=== PATIENT | female | born 2005 ===

== ENCOUNTER 2024-06-22 13:38 | Emergency (ER) | payer MEDICAID ==
[2024-06-22] MEDS: Sodium Chloride 0.9% 1,000 ML IV ONE (14:39)
[2024-06-22] MEDS: Ondansetron 4 MG/2 ML SDV IVPUSH ONE (14:40)
[2024-06-22 14:48] LABS: BASOPHILS ABSOLUTE AUTO 0.02 K/uL (0.00-0.20); BASOPHILS PERCENT AUTO 0.2 % (0.0-1.0); EOSINOPHILS ABSOLUTE AUTO 0.01 K/uL (0.00-0.45); EOSINOPHILS PERCENT AUTO 0.1 % (0.0-6.0); HEMATOCRIT 42.1 % (37.0-47.0); HEMOGLOBIN 14.4 g/dL (12.0-16.0); IMMATURE GRAN ABSOLUTE AUTO 0.03 K/uL (0.00-0.05); IMMATURE GRAN PERCENT AUTO 0.2 % (0.0-0.4); LYMPHOCYTES ABSOLUTE AUTO 0.95 K/uL (1.00-4.80); LYMPHOCYTES PERCENT AUTO 7.6 % (24.0-44.0); MEAN CORPUSCULAR HEMOGLOBIN 28.3 pg (28.0-32.0); MEAN CORPUSCULAR HGB CONC 34.2 g/dL (32.0-36.0); MEAN CORPUSCULAR VOLUME 82.9 fL (83.0-99.0); MEAN PLATELET VOLUME 11.2 fL (9.4-12.3); MONOCYTES ABSOLUTE AUTO 0.71 K/uL (0.00-0.80); MONOCYTES PERCENT AUTO 5.7 % (0.0-8.0); NEUTROPHILS PERCENT AUTO 86.2 % (41.0-71.0); PLATELET COUNT,PLT 212 K/uL (150-400); RED BLOOD CELL COUNT 5.08 M/uL (4.10-5.30); WHITE BLOOD CELL COUNT,WBC 12.52 K/uL (3.9-11.3)
[2024-06-22 14:49] LABS: BILIRUBIN,URINE NEGATIVE (NEGATIVE); COLOR,URINE YELLOW; GLUCOSE,URINE NEGATIVE (NEGATIVE); KETONES,URINE >=80 mg/dL (NEGATIVE); LEUKOCYTE ESTERASE,URINE NEGATIVE (NEGATIVE); NITRITE,URINE NEGATIVE (NEGATIVE); OCCULT BLOOD,URINE NEGATIVE (NEGATIVE); PROTEIN,URINE TRACE mg/dL (NEGATIVE); UROBILINOGEN,URINE 0.2 EU/dL (<2.0)
[2024-06-22 14:58] LABS: APPEARANCE,URINE HAZY; BACTERIA,URINE FEW (NEGATIVE); EPITHELIAL CELLS,URINE MANY (NONE-FEW); MUCUS,URINE MODERATE (NONE-MOD); RBC,URINE 0-1 (0-2/HPF); WBC,URINE 0-5 (0-5/HPF)
[2024-06-22 15:06] LABS: A/G RATIO 1.1 (0.9-1.6); ALBUMIN 3.7 g/dL (3.4-5.0); BILIRUBIN TOTAL 0.5 mg/dL (0.2-1.0); CALCIUM 8.8 mg/dL (8.5-10.1); CARBON DIOXIDE,CO2 24.8 mmol/L (21.0-32.0); CREATININE 0.8 mg/dL (0.6-1.0); EST CRCL DRUG DOSING (CG) 100.4 mL/min; PROTEIN TOTAL,TP 7.1 g/dL (6.4-8.2)
[2024-06-22] MEDS: Morphine 4 MG/ML Syringe IVPUSH ONE (15:22)
[2024-06-22] MEDS: Iopamidol 755 MG/ML 500 ML Multipack Bottle IVPUSH STA (15:51)
== END 2024-06-22 16:47 | disposition home or self-care (01) ==
LOC: MW.ED 13:38
DX: K52.9 Noninfective gastroenteritis and colitis, unspecified (principal); Z75.8 Other problems related to medical facilities and other health care
CPT/HCPCS: 36415; 74177; 80053; 81001; 81025; 83690; 85025; 96361; 96374; 96375; 99284; J2270; J2405; J7030; Q9967

== ENCOUNTER 2024-06-23 21:20 | Emergency (ER) | payer MEDICAID ==
[2024-06-23] MEDS: Ondansetron 4 MG Tab.DIS PO ONE (22:15)
[2024-06-23] MEDS: Acetaminophen/HYDROcodone 325-5 MG Tab PO ONE (22:15)
== END 2024-06-23 23:00 | disposition home or self-care (01) ==
LOC: MW.ED 21:20
DX: R10.84 Generalized abdominal pain (principal)
CPT/HCPCS: 99283; A9270